=== PATIENT | female | born 2000 | race Caucasian/White ===

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

== ENCOUNTER 2021-09-23 17:35 | Emergency (ER) | payer OTHER ==
[~2021-09-23] VITALS: Ht 162.6 cm; Wt 53.1 kg
[2021-09-23 17:44] VITALS: BP 127/72
[2021-09-23] MEDS ORDERED: KETOROLAC 30 MG/ML VIAL IM ONE (19:00)
[2021-09-23] MEDS ORDERED: LID5T TP (19:03)
[2021-09-23] MEDS ORDERED: CYCL-711 PO (19:03)
[2021-09-23] MEDS ORDERED: IBUP-2213 PO (19:03)
[2021-09-23 20:10] VITALS: BP 127/72
== END 2021-09-23 20:10 | disposition home or self-care (01) ==
LOC: MED 17:35
DX: M54.50 Low back pain, unspecified (principal); R03.0 Elevated blood-pressure reading, without diagnosis of hypertension; Z88.1 Allergy status to other antibiotic agents; Z79.899 Other long term (current) drug therapy
CPT/HCPCS: 81002; 81025; 96372; 99283; J1885